=== PATIENT | male | born 1980 | race African-American/Black ===

== ENCOUNTER 2018-11-15 13:30 | Emergency (ER) | payer SELFPAY ==
[2018-11-15 14:48] VITALS: BP 159/92
== END 2018-11-15 15:56 | disposition home or self-care (01) ==
LOC: EMS 13:32
DX: S90.822A Blister (nonthermal), left foot, initial encounter (principal); L08.9 Local infection of the skin and subcutaneous tissue, unspecified; I10 Essential (primary) hypertension; F12.90 Cannabis use, unspecified, uncomplicated; F17.210 Nicotine dependence, cigarettes, uncomplicated; X58.XXXA Exposure to other specified factors, initial encounter; Y93.89 Activity, other specified; Y92.89 Other specified places as the place of occurrence of the external cause; Y99.8 Other external cause status
CPT/HCPCS: 10060; 99406